=== PATIENT | female | born 1950 | race Caucasian/White ===

== ENCOUNTER 2018-05-04 12:37 | Emergency (ER) | payer MEDICARE ==
[~2018-05-04] VITALS: Ht 160 cm; Wt 68.0 kg
--- NOTE | 2018-05-04 15:07 | Diagnostic Imaging Report ---
LEFT WRIST X-RAY - 3 VIEWS HISTORY: ^Deyvi out fracture after fall today ^[id number] ^[id number] COMPARISON: None available. FINDINGS: Bones: Acute minimally displaced intra-articular fracture of the proximal left radius. No dislocation. Osseous alignment is within normal limits. Joints: The joint spaces are well-maintained. Soft tissues: Mild soft tissue swelling surrounding the wrist. IMPRESSION: Acute minimally displaced intra-articular fracture of the proximal left radius. Signed by: Dr. Praveena Alan M.D. on 05/04/2018 3:04 PM
--- NOTE | 2018-05-04 15:13 | NUR ---
volar splint and sling by disability liaison officer
[2018-05-04] MEDS ORDERED: HYDROMORPHONE 2MG/ML 2 MG/ML ML IM ONE (16:30)
== END 2018-05-04 15:13 | disposition home or self-care (01) ==
LOC: ER 12:37
DX: S52.572A Other intraarticular fracture of lower end of left radius, initial encounter for closed fracture (principal); W01.0XXA Fall on same level from slipping, tripping and stumbling without subsequent striking against object, initial encounter; Y92.008 Other place in unspecified non-institutional (private) residence as the place of occurrence of the external cause; E78.5 Hyperlipidemia, unspecified
CPT/HCPCS: 29125; 73110; 99284; J1170